=== PATIENT | male | born 1995 | race Caucasian/White ===

== ENCOUNTER 2016-05-28 15:13 | Emergency (ER) | payer OTHER ==
[2016-05-28 15:27] VITALS: BP 132/78; PULSE 90; RESP 16; TEMP 98.8; O2SAT 95
--- NOTE | 2016-05-28 16:15 | UCPHY ---
H & P Patient Type: New Smoking Status: Never smoked Time Seen by Provider: 05/28/16 16:00 HPI/ROS: HPI: 20-year-old male presents to urgent care with chief concern left thumb laceration. Occurred with a pocket knife 1 hour prior to arrival when he was in his dorm room at [employer]. Denies weakness, numbness, or tingling of the left 1st finger. Up-to-date with tetanus. Right-hand dominant. ROS: Cardiovascular: No dusky, cool extremity GI: no nausea, vomiting Musculoskeletal: No decreased ROM or joint pain Neuro: No weakness, numbness, or tingling of extremities Mental status: no change in mentation Skin: Laceration as noted above (Sri Busby) Physical Exam: Vital signs stable, reviewed by me General: Awake, alert, calm, cooperative. No acute distress. Head: Normalocephalic. Atraumatic. EENT: PERRLA. EOMI. CV: Distal pulses 2+ bilaterally. Brisk cap refill all extremities. Neuro: Alert. Oriented x 3. Speech clear. Sensation intact all extremities. Skin: Skin warm, dry. There is a 1 cm laceration located palmar surface of the finger tip of the left 1st finger Musculoskeletal: Strength 5+ all extremities. (Sri Busby) Constitutional: Initial Vital Signs Temperature (C) 37.1 C 05/28/16 15:24 Heart Rate 90 05/28/16 15:24 Respiratory Rate 16 05/28/16 15:24 Blood Pressure 132/78 H 05/28/16 15:24 O2 Sat (%) 95 05/28/16 15:24 O2 Delivery Mode Room Air Allergies/Adverse Reactions: No Known Allergies Allergy (Verified 05/28/16 15:24) Home Medications: Medication Instructions Recorded Luciana Allergy 05/28/16 Citalopram 05/28/16 Multivitamin 05/28/16 Vyvanse 05/28/16 Zyrtec 05/28/16 Medical Decision Making Procedures: After verbal consent was obtained and risks and benefits explained, the laceration was anesthetized using a total of 4 ml of 0.5% Marcaine using a digital block. Lac then irrigated per protocol by wafer fabrication technician. Under sterile procedure, the wound was explored to its base with a gloved finger and no foreign body was identified. No deep structure identified. Wound was then draped and sterile procedure followed during laceration repair. Wound was repaired using # 5, 5-0 Prolene sutures. After repair, laceration cleansed, bacitracin and sterile dressing applied. Procedure performed by myself. Procedure was simple. Pt tolerated the procedure well. (Sri Busby) Other Provider: The patient was evaluated and managed by the nurse practitioner, Sri Busby.. My co-signature indicates that I have reviewed this chart and I agree with the findings and plan of care as documented. I am the secondary supervising physician. (Aliza Prakash) Departure - Departure Disposition: Home, Routine, Self-Care Clinical Impression: Laceration of thumb Instructions: Finger Laceration (ED) Additional Instructions: Plan: We saw you here today at the ED with a laceration of your left thumb. We closed the wound with sutures. We'll have you leave the dressing on for 24 hours then remove it and begin cleaning the area daily by letting warm, soapy water run over it, but do not scrub or rub the site. Remove dried blood with a Q -tip dipped in water. Apply a thin layer of antibiotic ointment. Continue this routine daily. Recheck urgently if the area develops redness, swelling, increased pain, or red streaking above the wound, or if you develop a fever. Return to the Urgent Care or go to [facility] in 10 days for suture removal. Return prior to then if any issues or concerns. Referrals: [place],. [Primary Care Provider] - As per Instructions [facility] [Outside] - As per Instructions - PQRS PQRS Measurement: Not applicable (Sri Busby)
== END 2016-05-28 16:41 | disposition home or self-care (01) ==
LOC: CED 15:13
PROC: 0HQGXZZ Repair Left Hand Skin, External Approach (ICD-10-PCS; principal; 2016-05-28)
DX: S61.012A Laceration without foreign body of left thumb without damage to nail, initial encounter (principal); W26.0XXA Contact with knife, initial encounter
CPT/HCPCS: G0463-PO